=== PATIENT | female | born 1990 | race Asian ===

== ENCOUNTER 2023-03-15 04:09 | Emergency (ER) | payer MEDICAID ==
[~2023-03-15] VITALS: Ht 162.5 cm; Wt 65.7 kg
[2023-03-15 04:14] VITALS: BP 157/97
--- NOTE | 2023-03-15 04:30 | ED GU-Female ---
General Chief Complaint: OB > 20 WEEKS Stated Complaint: ABDOMINAL PAIN Source: patient, family History of Present Illness Date Seen by Provider: March 15, 2023 Time Seen by Provider: 04:13 Initial Comments 32-year-old female that is at approximately 34-4/7 weeks estimated gestational age with a due date of April 22 presenting due to pain waking her up from sleep approximately an hour ago. She is having pains to the top of her uterus and into her back for the last hour she denies having any vaginal bleeding or gush of fluid. She as well as she has been having some swelling in her ankles and feet since Monday. Has not had any lower uterine pain. She still feels baby moving. She denies any pain or burning with urination. The pain seems to be coming in waves at least every 5 or 10 minutes. Timing/Duration: this morning Severity/Quality: moderate Location: other (Upper abdomen of the uterus) Radiation: back Activities at Onset: sleep Prior Genitourinary Problems: none Sexual [place] History: less than 2 months ago Associated Symptoms: No diaphoresis, No dysuria, No fever/chills, No loss of bladder control; lower back pain; No lumps, No mass, No nausea/vomiting, No nocturia, No polyuria; swelling (Bilateral feet and ankle); No syncope, No urinary frequency Allergies and Home Medications Allergies Coded Allergies: No Known Drug Allergies (Unverified , 03/15/23) Patient Home Medication List Home Medication List Reviewed: Yes Review of Systems Review of Systems Constitutional: No chills, No fever EENTM: no symptoms reported Respiratory: no symptoms reported Cardiovascular: no symptoms reported Gastrointestinal: see HPI Genitourinary: see HPI : Yes Expected Date of Delivery: Apr 22, 2023 Musculoskeletal: no symptoms reported Past Qoabond-Czaxhq-Zzugth Hx Patient Social History Tobacco Use?: No Substance use?: No Alcohol Use?: No Pt feels they are or have been: No Physical Exam Vital Signs Vital Signs - First Documented 03/15/23 04:14 Temp 37.0 Pulse 50 Resp 16 B/P (MAP) 157/97 (117) Pulse Ox 99 O2 Delivery Room Air Capillary Refill : Height, Weight, BMI Height: '" Weight: lbs. oz. kg; BMI Method: General Appearance: WD/WN, no apparent distress HEENT: PERRL/EOMI Cardiovascular: normal peripheral pulses, regular rate, rhythm Respiratory: chest non-tender, lungs clear, normal breath sounds Gastrointestinal: normal bowel sounds, soft, no pulsatile mass, other (Gravid uterus) Neurologic/Psychiatric: alert, oriented x 3 Skin: normal color, warm/dry Progress/Results/Core Measures Suspected Sepsis SIRS Temperature: Pulse: Respiratory Rate: Blood Pressure / Mean: Results/Orders Vital Signs/I&O 03/15/23 04:14 Temp 37.0 Pulse 50 Resp 16 B/P (MAP) 157/97 (117) Pulse Ox 99 O2 Delivery Room Air Capillary Refill : Progress Note : Progress Note Obtain heart tones and they were 1 48-1 55. She had some tightening of the uterus on exam that was coming and going. Unable to fully rule out labor just with the equipment available here in the emergency department in [place]. Will call Dr. Alan and notify her and see if she wanted anything else done here prior to having the patient go to labor and delivery. 0425 d/w Dr. Alan and she requested the patient go to L&D for labor evaluation and rule out. I informed the patient and family and they will take her to [place]. Departure Impression Primary Impression: Abdominal pain during in third trimester Additional Impression: Bilateral swelling of feet and ankles Disposition: 01 HOME, SELF-CARE Condition: Stable Departure-Patient Inst. Decision time for Depature: 04:28 Referrals: CHELSIE ALAN MD (PCP) Primary Care Physician Patient Instructions: Stomach Pain Later in Add. Discharge Instructions: Go directly to Labor and Delivery in [facility]. They will be able to evaluate you more for the abdominal pain and swelling and check to see if you are having contractions or not. All discharge instructions reviewed with patient and/or family. Voiced understanding. JONATHAN PERRY MD March 15, 2023 04:30
== END 2023-03-15 04:32 | disposition home or self-care (01) ==
LOC: ER FS 04:13
DX: O99.613 Diseases of the digestive system complicating pregnancy, third trimester (principal); O99.891 Other specified diseases and conditions complicating pregnancy; R10.10 Upper abdominal pain, unspecified; M79.89 Other specified soft tissue disorders; Z28.310 Unvaccinated for COVID-19; Z3A.34 34 weeks gestation of pregnancy

== ENCOUNTER → 2023-03-15 | Outpatient (CLI) | payer MEDICAID ==
[2023-03-15 12:29] LABS: BASOPHILS % (AUTO) 1 % (0-10); EOSINOPHILS # (AUTO) 0.1 10^3/uL (0.0-0.3); EOSINOPHILS % (AUTO) 1 % (0-10); HEMATOCRIT 37 % (35-52); HEMOGLOBIN 12.3 g/dL (11.5-16.0); LYMPHOCYTES # (AUTO) 1.6 10^3/uL (1.0-4.0); LYMPHOCYTES % (AUTO) 20 % (12-44); MEAN CORPUSCULAR HEMOGLOBIN 28 pg (25-34); MEAN CORPUSCULAR HGB CONC 33 g/dL (32-36); MEAN CORPUSCULAR VOLUME 85 fL (80-99); MEAN PLATELET VOLUME 11.6 fL (9.0-12.2); MONOCYTES # (AUTO) 0.5 10^3/uL (0.0-1.0); MONOCYTES % (AUTO) 6 % (0-12); NEUTROPHILS # (AUTO) 5.6 10^3/uL (1.8-7.8); NEUTROPHILS % (AUTO) 72 % (42-75); PLATELET COUNT 236 10^3/uL (130-400); WHITE BLOOD COUNT 7.8 10^3/uL (4.3-11.0)
[2023-03-15 12:42] LABS: ALANINE AMINOTRANSFERASE 25 U/L (0-55); ALBUMIN 3.7 GM/DL (3.2-4.5); ALKALINE PHOSPHATASE 162 U/L (40-136); BILIRUBIN,TOTAL < 0.2 MG/DL (0.1-1.0); BUN/CREATININE RATIO 15; CALCIUM 9.5 MG/DL (8.5-10.1); CARBON DIOXIDE 24 MMOL/L (21-32); CHLORIDE 103 MMOL/L (98-107); CREATININE SERUM 0.61 MG/DL (0.60-1.30); GFR ESTIMATED 123; GLUCOSE 75 MG/DL (70-105); POTASSIUM 4.3 MMOL/L (3.6-5.0); SODIUM 138 MMOL/L (135-145); TOTAL PROTEIN 6.7 GM/DL (6.4-8.2)
[2023-03-15 14:21] LABS: URIC ACID 5.7 MG/DL (2.6-7.2)
== END ==
LOC: LAB FS 11:56
PROVIDERS: ATTEND Nurse Practitioner Family
DX: O16.3 Unspecified maternal hypertension, third trimester (principal); Z3A.00 Weeks of gestation of pregnancy not specified
CPT/HCPCS: 36415; 80053; 82570; 83615; 84156; 84550; 85025

== ENCOUNTER 2023-03-22 14:15 | Inpatient (IN) | payer MEDICAID ==
[2023-03-22] VITALS (36 sets, daily range): BP systolic 115–169; BP diastolic 59–106
[2023-03-22] MEDS ORDERED: MINERAL OIL 30 ML UDC TOP PRN (16:15)
[2023-03-22] MEDS ORDERED: LIDOCAINE/EPI 2% 1:200,00 (XYLOCAINE) 10 ML VIAL INJ PRN (16:15)
[2023-03-22 16:28] LABS: BASOPHILS % (AUTO) 1 % (0-10); EOSINOPHILS # (AUTO) 0.1 10^3/uL (0.0-0.3); EOSINOPHILS % (AUTO) 2 % (0-10); HEMATOCRIT 39 % (35-52); HEMOGLOBIN 12.9 g/dL (11.5-16.0); LYMPHOCYTES # (AUTO) 1.6 X 10^3 (1.0-4.0); LYMPHOCYTES % (AUTO) 24 % (12-44); MEAN CORPUSCULAR HEMOGLOBIN 28 pg (25-34); MEAN CORPUSCULAR HGB CONC 33 g/dL (32-36); MEAN CORPUSCULAR VOLUME 85 fL (80-99); MEAN PLATELET VOLUME 11.4 fL (9.0-12.2); MONOCYTES # (AUTO) 0.5 X 10^3 (0.0-1.0); MONOCYTES % (AUTO) 7 % (0-12); NEUTROPHILS # (AUTO) 4.5 X 10^3 (1.8-7.8); NEUTROPHILS % (AUTO) 66 % (42-75); PLATELET COUNT 293 10^3/uL (130-400); WHITE BLOOD COUNT 6.8 10^3/uL (4.3-11.0)
[2023-03-22 16:31] LABS: ALBUMIN 3.5 GM/DL (3.2-4.5); POTASSIUM 4.3 MMOL/L (3.6-5.0)
[2023-03-22 16:33] LABS: CALCIUM 9.8 MG/DL (8.5-10.1)
[2023-03-22 16:36] LABS: BILIRUBIN,TOTAL 0.1 MG/DL (0.1-1.0)
[2023-03-22 16:37] LABS: CREATININE SERUM 0.67 MG/DL (0.60-1.30)
--- NOTE | 2023-03-22 17:32 | History & Physical-OB ---
OB - Chief Complaint & HPI Date/Time Date of Admission: Date of Admission: March 22, 2023 at 14:15 Date seen by a Provider: March 22, 2023 Time Seen by a Provider: 17:28 Chief Complaint/History OB-Reason for Admission/Chief: Induction of Labor ( Demise) Hx : 1 Gestational Age in Weeks: 35 Gestational Age in Days: 2 History of Labs O+, Ab neg, Rub Imm HIV/RPR/HepB/C NR Allergies and Home Medications Allergies Coded Allergies: No Known Drug Allergies (Unverified , 03/15/23) Patient Home Medication List Home Medication List Reviewed: Yes OB - History Hx of Present Care: Yes Ultrasounds: Other (Demise @ 35 weeks) Obstetrical Complications: Pre-eclampsia Medical Complications: None Patient Past Medical History None Social History/Family History Alcohol Use: Denies Use Recreational Drug Use: No Smoking Cessation: Never smoker Immunizations Tetanus Booster (TDap): Less than 5yrs Rubella: immune RPR/VDRL: Negative GBS Status: Unknown HBsAG: Negative OB - Admission Exam Physical Exam Vitals: Vital Signs 03/22/23 16:30 Temp 36.5 Pulse 89 Resp 18 B/P (MAP) 166/97 (120) Pulse Ox 99 O2 Delivery Room Air HEENT: NCAT Heart: Rhythm Normal Lungs: Clear Abdomen: Gravid Membranes: Intact Contractions on Admission: >10 Minutes Apart Intensity: Mild Labs Laboratory Tests Test 03/22/23 14:50 03/22/23 15:33 Range/Units White Blood Count 6.8 4.3-11.0 10^3/uL Red Blood Count 4.59 3.80-5.11 10^6/uL Hemoglobin 12.9 11.5-16.0 g/dL Hematocrit 39 35-52 % Mean Corpuscular Volume 85 80-99 fL Mean Corpuscular Hemoglobin 28 25-34 pg Mean Corpuscular Hemoglobin Concent 33 32-36 g/dL Red Cell Distribution Width 13.1 10.0-14.5 % Platelet Count 293 130-400 10^3/uL Mean Platelet Volume 11.4 9.0-12.2 fL Immature Granulocyte % (Auto) 0 % Neutrophils (%) (Auto) 66 42-75 % Lymphocytes (%) (Auto) 24 12-44 % Monocytes (%) (Auto) 7 0-12 % Eosinophils (%) (Auto) 2 0-10 % Basophils (%) (Auto) 1 0-10 % Neutrophils # (Auto) 4.5 1.8-7.8 X 10^3 Lymphocytes # (Auto) 1.6 1.0-4.0 X 10^3 Monocytes # (Auto) 0.5 0.0-1.0 X 10^3 Eosinophils # (Auto) 0.1 0.0-0.3 10^3/uL Basophils # (Auto) 0.0 0.0-0.1 10^3/uL Immature Granulocyte # (Auto) 0.0 0.0-0.1 10^3/uL Sodium Level 137 135-145 MMOL/L Potassium Level 4.3 3.6-5.0 MMOL/L Chloride Level 106 98-107 MMOL/L Carbon Dioxide Level 20 L 21-32 MMOL/L Anion Gap 11 5-14 MMOL/L Blood Urea Nitrogen 11 7-18 MG/DL Creatinine 0.67 0.60-1.30 MG/DL Estimat Glomerular Filtration Rate 120 BUN/Creatinine Ratio 16 Glucose Level 88 70-105 MG/DL Calcium Level 9.8 8.5-10.1 MG/DL Corrected Calcium 10.2 H 8.5-10.1 MG/DL Total Bilirubin 0.1 0.1-1.0 MG/DL Aspartate Amino Transf (AST/SGOT) 39 H 5-34 U/L Alanine Aminotransferase (ALT/SGPT) 30 0-55 U/L Alkaline Phosphatase 191 H 40-136 U/L Total Protein 7.0 6.4-8.2 GM/DL Albumin 3.5 3.2-4.5 GM/DL Urine Protein 49 H 6-12 MG/DL Urine Creatinine 17 L 30-125 MG/DL Urine Protein/Creatinine Ratio 2.88 OB - Assessment/Plan/Diagnosis Assessment Assessment: IUFD Admission Dx Third Trimester 35 completed weeks IUFD Admission Status: Inpatient Order (span 2 midnights) Reason for Inpatient Admission: Labor and post care Plan Other Plan 32 yo G1 @ 35 week IUFD Plan - Epidural - Cytotec protocol CHELSIE MONTES MD March 22, 2023 17:32
[2023-03-22] MEDS ORDERED: BUPIVACAINE 0.25% 10 ML (SENSORCAINE) VIAL ONE (17:53)
[2023-03-22] MEDS ORDERED: fentaNYL INJ 100 MCG/2 ML AMP ONE (17:53)
[2023-03-22] MEDS ORDERED: fentaNYL 2 mcg/ml BUPIVA 0.125 100 ML ONE (17:53)
[2023-03-22] MEDS: D5 LR IV SOLUTION 1,000 ML IV SCH (18:26)
[2023-03-22] MEDS ORDERED: CATHETER FLUSH 10 ML SYR IV PRN (18:30)
[2023-03-22] MEDS ORDERED: NALOXONE 0.4 MG/ML 1 ML (NARCAN) VIAL IV PRN (18:30)
[2023-03-22] MEDS ORDERED: LACTATED RINGERS 1,000 ML IV ONE (18:30)
[2023-03-22] MEDS: fentaNYL 2 mcg/ml BUPIVA 0.125 100 ML IV SCH (18:35)
[2023-03-22] MEDS ORDERED: LORazepam INJ 2 MG/ML (ATIVAN) VIAL IVP PRN (19:45)
[2023-03-22] MEDS ORDERED: PREN1TAB19 PO (21:03)
[2023-03-22] MEDS ORDERED: FERR-84 PO (21:03)
[2023-03-22] MEDS ORDERED: CATHETER FLUSH 10 ML SYR IV SCH (22:00)
[2023-03-23] VITALS (41 sets, daily range): BP systolic 102–189; BP diastolic 65–113
[2023-03-23] MEDS: D5 LR IV SOLUTION 1,000 ML IV SCH ×2 (01:07→17:46)
[2023-03-23] MEDS: fentaNYL 2 mcg/ml BUPIVA 0.125 100 ML IV SCH (04:19)
[2023-03-23] MEDS ORDERED: FAMOTIDINE 20MG/2ML IV (PEPCID) IV ONE (07:45)
[2023-03-23] MEDS ORDERED: METOCLOPRAMIDE INJ 10 MG/2 ML (REGLAN) IV ONE (07:45)
[2023-03-23] MEDS ORDERED: CITRIC ACID/SOB CIT (BICITRA) 30 ML UDC PO ONE (07:45)
[2023-03-23] MEDS ORDERED: LACTATED RINGERS 1,000 ML IV PRN (07:45)
[2023-03-23] MEDS ORDERED: FAMOTIDINE 20MG/2ML IV (PEPCID) ONE (07:51)
[2023-03-23] MEDS ORDERED: METOCLOPRAMIDE INJ 10 MG/2 ML (REGLAN) ONE (07:51)
[2023-03-23] MEDS ORDERED: CITRIC ACID/SOB CIT (BICITRA) 30 ML UDC ONE (07:51)
[2023-03-23] MEDS ORDERED: NS (IVPB) 50 ML ONE (07:52)
[2023-03-23] MEDS ORDERED: ceFAZolin INJECTION 2,000 MG ONE (07:52)
[2023-03-23] MEDS ORDERED: ceFAZolin INJECTION 2,000 MG in NS (IVPB) 50 ML IV ONE (08:00)
[2023-03-23] MEDS ORDERED: fentaNYL INJ 100 MCG/2 ML AMP ONE ×2 (08:21→09:03)
--- NOTE | 2023-03-23 08:23 | Consultation ---
History of Present Illness History of Present Illness Patient Consulted On(los/time) 03/23/23 08:17 Date Seen by Provider: March 23, 2023 Time Seen by Provider: 08:15 Reason for Visit: demise History of Present Illness [address] Alan presented to office with IUFD at 35 weeks. IOL overnight, patient not tolerating this mentally and wanting to proceed with delivery antionette due to fear of being able to actually push the baby out. Allergies and Home Medications Allergies Coded Allergies: No Known Drug Allergies (Unverified , 03/15/23) Patient Home Medication List Home Medication List Reviewed: Yes Ferrous Sulfate (Iron) 325 Mg (65 Mg Iron) Tablet, 325 MG PO 2 times a week, (Reported) Entered as Reported by: PRABHJOT GOMEZ on 03/22/232102 Last Action: New Order Vit/Iron Fumarate/FA ( Vitamins Tablet) 28 Mg Iron-800 Mcg Tablet, 1 EACH PO DAILY, (Reported) Entered as Reported by: PRABHJOT GOMEZ on 03/22/232102 Last Action: New Order Past Yxnfhiy-Errley-Wmsosg Hx Patient Social History Tobacco Use?: No Substance use?: No Alcohol Use?: No Pt feels they are or have been: No Immunizations Up To Date Tetanus Booster (TDap): Less than 5yrs Past Medical History Surgery/Hospitalization HX: none Hx : 1 Review of Systems-General Constitutional: see HPI EENTM: see HPI Respiratory: see HPI Cardiovascular: see HPI Gastrointestinal: see HPI Genitourinary: see HPI All Other Systems Reviewed Negative Unless Noted: Yes Physical Exam-General Problems Physical Exam Vital Signs Vital Signs - First Documented 03/22/23 03/22/23 14:30 15:00 Temp 36.5 Pulse 106 Resp 20 B/P (MAP) 149/97 (114) Pulse Ox 96 O2 Delivery Room Air Capillary Refill : General Appearance: WD/WN, no apparent distress HEENT: PERRL/EOMI Lymphatic: no adenopathy Assessment/Plan Assessment/Plan Admission Diagnosis/Plan Diagnosis: 35 week IUFD Suspected IUGR of unknown origin P: PLTCS- discussed with patient how preference would always be for vaginal delivery, but patient and family are adamant about proceeding urgently to delivery. Risk of surgery and anesthesia reviewed and patient agreeable to proceed. Admission Status: Inpatient Order (span 2 midnights) DEBBIE GILL 18, 2023 08:23
--- NOTE | 2023-03-23 08:25 | Labor Progress Note ---
Labor Progress Note Labor Progress Note Date Seen by Provider: March 23, 2023 Time Seen by Provider: 07:00 Subjective: Pt denies complaints. Epidural in place. She is not really feeling contractions. Patient and family desires Primary C/s at this time. Objective: /2 Assessment/Plan: Galina Singh is a (32 /Para 1 / ,Gestational Age (wks)35 here for IUFD Epidural in place Pre eclampsia with mild features, blood pressures well controlled ON, P:Cr ratio 2.33 on arrival Desires Primary C/s Dr Higuera consulted Vitals - Labs Vital Signs - I&O Vital Signs Date Time Temp Pulse Resp B/P (MAP) Pulse Ox O2 Delivery O2 Flow Rate FiO2 03/23/23 07:00 71 18 120/69 (86) 98 Room Air 03/23/23 06:45 73 18 138/80 (99) 98 Room Air 03/23/23 06:30 37.2 83 18 129/80 (96) 98 Room Air 03/23/23 06:15 84 18 123/77 (92) 99 Room Air 03/23/23 06:00 93 18 129/79 (96) 99 Room Air 03/23/23 05:45 77 18 119/75 (90) 98 Room Air 03/23/23 05:30 72 18 120/72 (88) 98 Room Air 03/23/23 05:15 93 18 117/77 (90) 98 Room Air 03/23/23 05:00 76 18 110/72 (85) 98 Room Air 03/23/23 04:45 78 18 107/69 (82) 98 Room Air 03/23/23 04:30 71 18 124/73 (90) 98 Room Air 03/23/23 04:15 37.1 95 18 118/68 (85) 98 Room Air 03/23/23 04:00 75 18 125/75 (92) 98 Room Air 03/23/23 03:45 74 18 128/71 (90) 98 Room Air 03/23/23 03:30 88 18 114/73 (87) 98 Room Air 03/23/23 03:15 73 18 133/78 (96) 98 Room Air 03/23/23 03:00 80 18 145/79 (101) 95 Room Air 03/23/23 02:45 97 18 137/88 (104) 99 Room Air 03/23/23 02:30 85 18 114/70 (85) 98 Room Air 03/23/23 02:15 82 18 102/65 (77) 97 Room Air 03/23/23 02:00 68 18 112/70 (84) 96 Room Air 03/23/23 01:45 86 18 110/74 (86) 97 Room Air 03/23/23 01:30 79 18 125/76 (92) 97 Room Air 03/23/23 01:15 73 18 123/73 (90) 97 Room Air 03/23/23 01:00 37.0 86 18 126/74 (91) 97 Room Air 03/23/23 00:45 82 18 136/78 (97) 97 Room Air 03/23/23 00:30 73 18 134/73 (93) 97 Room Air 03/23/23 00:15 73 18 118/83 (95) 97 Room Air 03/23/23 00:00 37.1 73 18 129/78 (95) 97 Room Air 03/22/23 23:45 73 18 131/81 (98) 97 Room Air 03/22/23 23:30 37.1 69 18 135/77 (96) 97 Room Air 03/22/23 23:15 80 18 140/76 (97) 97 Room Air 03/22/23 23:00 70 18 135/88 (104) 96 Room Air 03/22/23 22:45 76 18 137/85 (102) 97 Room Air 03/22/23 22:30 78 18 153/91 (111) 97 Room Air 03/22/23 22:15 72 18 128/72 (90) 98 Room Air 03/22/23 22:00 67 18 158/79 (105) 97 Room Air 03/22/23 21:45 37.0 75 18 157/81 (106) 98 Room Air 03/22/23 21:30 36.9 68 18 137/91 (106) 97 Room Air 03/22/23 21:00 69 18 154/81 (105) 98 Room Air 03/22/23 20:45 36.6 80 18 152/75 (100) 98 Room Air 03/22/23 20:30 76 18 140/65 (90) 98 Room Air 03/22/23 20:15 79 18 155/74 (101) 97 Room Air 03/22/23 20:00 81 18 151/72 (98) 98 Room Air 03/22/23 19:45 104 18 136/90 (105) 97 Room Air 03/22/23 19:30 85 18 128/77 (94) 98 Room Air 03/22/23 19:10 85 18 117/74 (88) 98 Room Air 03/22/23 18:56 96 18 117/70 (86) 97 03/22/23 18:53 81 18 117/74 (88) 98 03/22/23 18:50 68 18 140/75 (96) 03/22/23 18:48 100 18 115/59 (77) 98 03/22/23 18:43 102 18 123/61 (81) 97 Room Air 03/22/23 18:42 92 18 129/71 (90) 97 Room Air 03/22/23 18:38 78 18 133/70 (91) 97 Room Air 03/22/23 18:35 105 122/62 (82) Room Air 03/22/23 18:35 36.7 03/22/23 18:30 96 129/66 (87) 98 Room Air 03/22/23 18:26 96 18 132/73 (92) 99 Room Air 03/22/23 18:24 96 18 169/106 (127) 99 Room Air 03/22/23 18:21 95 18 146/87 (106) 99 Room Air 03/22/23 18:20 90 18 157/86 (109) 99 Room Air 03/22/23 18:17 87 18 156/88 (110) 99 Room Air 03/22/23 17:45 82 18 138/84 (102) Room Air 03/22/23 16:30 36.5 89 18 166/97 (120) 99 Room Air 03/22/23 15:00 78 18 149/97 (114) Room Air 03/22/23 14:30 36.5 106 20 96 Room Air I & O 03/23/23 07:00 Intake Total 1900 ml Balance 1900 ml Labs Laboratory Tests 03/22/23 14:50: White Blood Count 6.8, Red Blood Count 4.59, Hemoglobin 12.9, Hematocrit 39, Mean Corpuscular Volume 85, Mean Corpuscular Hemoglobin 28, Mean Corpuscular Hemoglobin Concent 33, Red Cell Distribution Width 13.1, Platelet Count 293, Mean Platelet Volume 11.4, Immature Granulocyte % (Auto) 0, Neutrophils (%) (Auto) 66, Lymphocytes (%) (Auto) 24, Monocytes (%) (Auto) 7, Eosinophils (%) (Auto) 2, Basophils (%) (Auto) 1, Neutrophils # (Auto) 4.5, Lymphocytes # (Auto) 1.6, Monocytes # (Auto) 0.5, Eosinophils # (Auto) 0.1, Basophils # (Auto) 0.0, Immature Granulocyte # (Auto) 0.0, Sodium Level 137, Potassium Level 4.3, Chloride Level 106, Carbon Dioxide Level 20L, Anion Gap 11, Blood Urea Nitrogen 11, Creatinine 0.67, Estimat Glomerular Filtration Rate 120, BUN/Creatinine Ratio 16, Glucose Level 88, Calcium Level 9.8, Corrected Calcium 10.2H, Total Bilirubin 0.1, Aspartate Amino Transf (AST/SGOT) 39H, Alanine Aminotransferase (ALT/SGPT) 30, Alkaline Phosphatase 191H, Total Protein 7.0, Albumin 3.5 03/22/23 15:33: Urine Protein 49H, Urine Creatinine 17L, Urine Protein/Creatinine Ratio 2.88 CHELSIE MONTES MD March 23, 2023 08:25
[2023-03-23] MEDS ORDERED: MEASLES,MUMPS,RUBELLA 1 EA INJ SC SCH (08:30)
[2023-03-23] MEDS ORDERED: ONDANSETRON 4 MG/2 ML (SDV) Z0FRAN IVP PRN (08:30)
[2023-03-23] MEDS ORDERED: NALOXONE 0.4 MG/ML 1 ML (NARCAN) VIAL IV PRN (08:30)
[2023-03-23] MEDS ORDERED: TETANUS,DIPTH,PERTUSS P/F (BOOSTRIX) 0.5 ML VIAL IM SCH (08:30)
--- NOTE | 2023-03-23 08:33 | Discharge Inst-Women's Service ---
Discharge Inst-Women's Serv Depart Medication/Instructions New, Converted or Re-Newed RX: Transmitted to Pharmacy Final Diagnosis POD 2 PLTCS Problems Reviewed?: Yes Consults/Follow Up Additional Follow Up: Yes Orders/Referrals Dr. Higuera in 7-10 days and in 6 weeks Activity Activity: Activity as Tolerated Driving Instructions: No Driving for 1 Week NO SMOKING: NO SMOKING Nothing Inside Vagina: No Douching, No [place], No Tampons Diet Discharge Diet: No Restrictions Symptoms to Report to : Bleeding Excessive, Pain Increased, Fever Over 101 Degrees F, Vaginal Bleeding Increase, Questions/Concerns For Any Problems or Questions: Contact Your Physician Skin/Wound Care Infection Signs and Symptoms: Increased Redness, Foul Odor of Wound, Increased Drainage, Skin Itchy or Has a Rash, Increased Swelling, Temperature Above 101 F Operative Area Clean and Dry: Keep Incision Clean/Dry Stitches/[place]/Dermabond: Dermabond, Care of Stitches Bathing Instructions: DEBBIE Lua DO March 23, 2023 08:33
[2023-03-23] MEDS ORDERED: DOCU100C37 PO (08:35)
[2023-03-23] MEDS ORDERED: ACHD5005 PO (08:35)
[2023-03-23] MEDS ORDERED: IBUP-844 PO (08:35)
[2023-03-23] MEDS: DOCUSATE SODIUM 100 MG (COLACE) CAP PO SCH ×2 (09:00→22:02)
[2023-03-23] MEDS ORDERED: KETOROLAC 30 MG/ML VIAL ONE (09:03)
[2023-03-23] MEDS ORDERED: OXYTOCIN PRE-MIX DRIP 500 ML IV ONE ×2 (09:03→09:33)
[2023-03-23] MEDS ORDERED: LIDOCAINE PF 2% 5 ML (XYLOCAINE) VIAL ONE (09:33)
[2023-03-23] MEDS ORDERED: BUPIVACAINE 0.5% 30 ML (SENSORCAINE) VIAL ONE (09:33)
[2023-03-23] MEDS: OXYTOCIN PRE-MIX DRIP 500 ML IV SCH ×2 (10:49→14:51)
--- NOTE | 2023-03-23 11:30 | OPERATIVE REPORT ---
PREOPERATIVE DIAGNOSES: 1. A 32-year-old G1 at 35 weeks' gestation. 2. demise. 3. Small for gestational age. POSTOPERATIVE DIAGNOSES: 1. A 32-year-old G1 at 35 weeks' gestation. 2. demise. 3. Small for gestational age. PROCEDURE: Primary low transverse section. SURGEON: Jerry Gill DO ANESTHESIA: Epidural, which was bolused. ESTIMATED BLOOD LOSS: 300 mL. URINE OUTPUT: 225 mL clear at the end of the procedure. FLUIDS: 1200 mL lactated Ringer's solution. FINDINGS: A demised female with weight pending. Meconium fluid noted on amniotomy. Grossly normal appearing uterus, bilateral fallopian tubes and ovaries with a subserosal fibroid at the uterine fundus. SPECIMEN SENT: Placenta and cord. INDICATIONS FOR PROCEDURE: This 32-year-old patient is a female who was from Dr. Alan's office by Dr. Alan for admission and induction of labor due to demise at 35 weeks and 5 days yesterday evening. She received Cytotec overnight. The patient became quite adamant and suggestive of proceeding with . She did progress to 4 cm; however, did not want to proceed with pushing this demised out vaginally. Her family was agreeable and wanted this to proceed via surgical delivery method. Risk of surgery versus vaginal demise delivery was all reviewed with the patient. Despite risks, she still wished to proceed with delivery and after all of her questions were answered with the family present consent was obtained, the patient was taken to the operating room. OPERATIVE REPORT IN DETAIL: Once in the operating room, epidural analgesia was bolused and found to be adequate. She was placed in supine position with leftward tilt, prepped and draped in normal sterile fashion. A timeout was performed. Anesthesia was tested and then make a Pfannenstiel skin incision with a knife and carried underlying fascia using Bovie cautery. The fascial incision extended laterally using Bovie cautery. Superior aspect of fascial incision was then grasped with Katrina clamps, tented up and dissected off the underlying rectus muscles. The inferior aspect of the fascial incision was then grasped with Katrina clamps, tented up and dissected overlying rectus muscles. The rectus muscles were dissected down the midline, which exposed the peritoneum, which I entered bluntly and extended using blunt traction. Ryder ring retractor was placed in the peritoneal incision, which offers excellent lateral sidewall retraction. I identified lower uterine segment was found to be thinned out and make a low transverse incision to the vesicouterine peritoneum and bluntly dissected off the lower uterine segment, creating a bladder flap. I then proceeded with my myotomy until membranes were visualized, at which point I extended the uterine incision laterally and superiorly using bandage scissors. Amniotomy was then performed using Allis clamp. Thick meconium-stained fluid was noted. The was found in vertex presentation. With gentle fundal pressure, the infant's head was elevated up the incision where it was delivered through the incision and the anterior and posterior shoulders were delivered. The was brought to the operative field where the cord was duly clamped and cut and infant was handed off to Dr. Alan who was present. Intact placenta with 3-vessel cord was then delivered spontaneously thereafter. IV Pitocin is initiated to facilitate uterine contraction. Uterine fundus confirmed by manual massage. The uterus was then exteriorized and cleared of all endometrial clots and debris. I then proceeded with closing the uterine incision using 0 Vicryl suture in a running locked fashion. Second layer of imbricating 0 Monocryl was placed. Excellent hemostasis was noted after doing this. I then placed the uterus back in the pelvis and copiously irrigated the pelvis using normal saline. Once again, there is no active bleeding noted from any of my dissection planes. I placed Interceed antiadhesive over my low transverse incision. I removed the Ryder ring retractor and then proceeded with closing the peritoneum using 3-0 Vicryl suture in a running fashion. The rectus muscles were reapproximated using 3-0 Vicryl suture in interrupted fashion. The fascia was reapproximated using 0 Vicryl suture in a running fashion. The skin reapproximated using 4-0 Monocryl in a running subcuticular. Dermabond was applied to incision, sterile dressing with adhesive white tape. The patient tolerated the procedure well and was taken to recovery area in stable condition. Lap and sponge counts were correct at the end of the procedure. Instrument counts were correct as well. Two grams of Ancef were given preoperatively for infection prophylaxis. Job ID: [id number] DocumentID: [id number] Dictated Date: 03/23/2023 09:29:02 [employer] Date: 03/23/2023 11:28:00 Dictated By: JERRY GILL DO
[2023-03-23] MEDS ORDERED: CATHETER FLUSH 10 ML SYR IV SCH (14:00)
[2023-03-23] MEDS: KETOROLAC 30 MG/ML VIAL IV SCH ×2 (16:19→22:02)
[2023-03-23] MEDS: HYDROcodone/APAP 5 MG/325 MG (LORTAB) TAB PO PRN ×2 (17:06→23:28)
[2023-03-23] MEDS ORDERED: ALPRAZolam 0.25 MG (XANAX) TAB PO PRN (17:15)
[2023-03-23] MEDS ORDERED: hydrALAZINE (APESOLINE) 20 MG/ML VIAL IV ONE (17:15)
[2023-03-23] MEDS ORDERED: hydrALAZINE (APESOLINE) 20 MG/ML VIAL ONE (17:32)
[2023-03-24 03:30] VITALS: BP 147/86
[2023-03-24] MEDS: KETOROLAC 30 MG/ML VIAL IV SCH (04:52)
[2023-03-24 05:33] LABS: BASOPHILS # (AUTO) 0.1 10^3/uL (0.0-0.1); BASOPHILS % (AUTO) 1 % (0-10); EOSINOPHILS # (AUTO) 0.2 10^3/uL (0.0-0.3); EOSINOPHILS % (AUTO) 2 % (0-10); HEMATOCRIT 31 % (35-52); HEMOGLOBIN 10.2 g/dL (11.5-16.0); LYMPHOCYTES # (AUTO) 1.3 10^3/uL (1.0-4.0); LYMPHOCYTES % (AUTO) 19 % (12-44); MEAN CORPUSCULAR HEMOGLOBIN 28 pg (25-34); MEAN CORPUSCULAR HGB CONC 33 g/dL (32-36); MEAN CORPUSCULAR VOLUME 85 fL (80-99); MONOCYTES # (AUTO) 0.4 10^3/uL (0.0-1.0); MONOCYTES % (AUTO) 5 % (0-12); NEUTROPHILS # (AUTO) 5.2 10^3/uL (1.8-7.8); NEUTROPHILS % (AUTO) 73 % (42-75); PLATELET COUNT 187 10^3/uL (130-400); WHITE BLOOD COUNT 7.2 10^3/uL (4.3-11.0)
[2023-03-24] MEDS ORDERED: LABE200T10 PO ×2 (08:31→08:49)
--- NOTE | 2023-03-24 08:33 | Postpartum Progress Note ---
Note Note Day # 1 Subjective: Patient is without complaints. Ambulating, voiding. Tolerating a regular diet without nausea or vomiting. Normal lochia. Pain is well controlled with oral pain medications. She has elevations in BP with anxiety and worry overnight. Otherwise while resting BP well controlled. Objective: Physical Exam: General - Alert and oriented, no apparent distress Abdomen - Soft, appropriately tender to palpation, non-distended, fundus firm at umbilicus Extremities - no edema, negative Yolanda's bilaterally Incision- c/d/i Assessment: POD 1 PLTCS Intrauterine Demise depression/anxiety- patient declines medication Acute blood loss anemia Labile BP Plan: Routine care. Started on labetalol 200 mg BID Encourage breast feeding. Encourage ambulation. Ferrous sulfate supplementation. Plan for discharge tomorrow Vitals - Labs Vital Signs - I&O Vital Signs Date Time Temp Pulse Resp B/P (MAP) Pulse Ox O2 Delivery O2 Flow Rate FiO2 03/24/23 03:30 36.6 77 18 147/86 (106) 97 Room Air 03/23/23 22:05 37.0 80 18 143/99 (114) 98 03/23/23 17:50 36.3 91 18 137/91 (106) 97 Room Air 03/23/23 17:10 70 189/95 (126) 03/23/23 16:35 36.2 72 18 183/105 (131) 97 Room Air 03/23/23 13:00 36.4 90 18 158/103 (121) 97 Room Air 03/23/23 10:34 Room Air 03/23/23 10:34 36.3 18 153/113 (126) 97 Room Air 03/23/23 10:19 Room Air 03/23/23 10:19 36.1 14 153/100 (117) 97 Room Air 03/23/23 10:04 Room Air 03/23/23 10:04 36.3 18 149/110 (123) 96 Room Air 03/23/23 09:49 Room Air 03/23/23 09:49 36.4 14 137/90 (106) 97 Room Air 03/23/23 09:34 Room Air 03/23/23 09:34 36.2 16 148/89 (108) 97 Room Air I & O 03/24/23 07:00 Intake Total 350 ml Output Total 3025 ml Balance -2675 ml Labs Laboratory Tests 03/24/23 04:57: White Blood Count 7.2, Red Blood Count 3.65L, Hemoglobin 10.2L, Hematocrit 31L, Mean Corpuscular Volume 85, Mean Corpuscular Hemoglobin 28, Mean Corpuscular Hemoglobin Concent 33, Red Cell Distribution Width 13.2, Platelet Count 187, Mean Platelet Volume 11.0, Immature Granulocyte % (Auto) 0, Neutrophils (%) (Auto) 73, Lymphocytes (%) (Auto) 19, Monocytes (%) (Auto) 5, Eosinophils (%) (Auto) 2, Basophils (%) (Auto) 1, Neutrophils # (Auto) 5.2, Lymphocytes # (Auto) 1.3, Monocytes # (Auto) 0.4, Eosinophils # (Auto) 0.2, Basophils # (Auto) 0.1, Immature Granulocyte # (Auto) 0.0 DEBBIE GILL DO March 24, 2023 08:33
[2023-03-24] MEDS ORDERED: IBUP-844 PO (08:49)
[2023-03-24] MEDS ORDERED: ACHD5005 PO (08:49)
[2023-03-24] MEDS ORDERED: DOCU100C37 PO (08:49)
[2023-03-24] MEDS: DOCUSATE SODIUM 100 MG (COLACE) CAP PO SCH ×2 (09:36→21:38)
[2023-03-24] MEDS: LABETALOL 200 MG (NORMODYNE) TAB PO SCH ×2 (09:36→21:38)
[2023-03-24 09:37] VITALS: BP 141/87
[2023-03-24] MEDS: HYDROcodone/APAP 5 MG/325 MG (LORTAB) TAB PO PRN ×2 (09:50→19:42)
[2023-03-24] MEDS: IBUPROFEN 600 MG (MOTRIN) TAB PO SCH ×3 (11:24→23:26)
[2023-03-24 17:17] VITALS: BP 141/76
[2023-03-24 19:42] VITALS: BP 149/91
[2023-03-25 01:30] VITALS: BP 135/85
[2023-03-25] MEDS: IBUPROFEN 600 MG (MOTRIN) TAB PO SCH (05:26)
[2023-03-25 08:30] VITALS: BP 140/87
[2023-03-25] MEDS ORDERED: ALPR.25T PO (08:40)
[2023-03-25] MEDS: DOCUSATE SODIUM 100 MG (COLACE) CAP PO SCH (08:43)
[2023-03-25] MEDS: LABETALOL 200 MG (NORMODYNE) TAB PO SCH (08:43)
--- NOTE | 2023-03-25 08:51 | Postpartum Progress Note ---
Post Op Post-operative Day #2, Stillbirth @ 35+ weeks, preeclampsia on Labetalol Subjective: Patient is without complaints. Ambulating, voiding after richardson removed. Tolerating a regular diet without nausea or vomiting. Normal lochia. Pain is well controlled with oral pain medications. Passing flatus. Patient requesting a few tablets for anxiety, on Xanax in house 0.25 mg q8h prn, took one yesterday. Discussed with patient and spouse avoiding taking both Xanax and oral narcotics at same time, take motrin and APAP instead, due to risks of sedation with both Xanax and narcotics at same time. Patient has bouts of anxiety when alone, will take rarely prn. Rx for 8 tablets in EHR as outpatient entered. Patient given verbal post-op instructions by me, encouraged ambulation especially over the next three weeks. Also has written instructions. Will follow up in [address] Higuera's office. BPs in normal range this AM. No additional questions or concerns about medical condition at this time. Objective: VSS/AF Physical Exam: General - Alert and oriented, no apparent distress Abdomen - Soft, appropriately tender to palpation, non-distended, fundus firm at umbilicus Incision - clean, dry and intact; no erythema or induration, no drainage Extremities - no edema, negative Yolanda's bilaterally Assessment: [] post-operative day # 2, status post Primary after failed induction for stillbirth @ 35+ weeks. Recovering well, hemodynamically stable Plan: Routine post-operative care. Encourage ambulation. Plan for discharge today. Follow up with Dr. Higuera's office next week. Advised to call clinic, L&D if any questions. Knows to go to ED for incional redness/pain/temp/foul drainage. No additional questions or concerns voiced by couple at this time. All questions answered to their satisfaction, voiced clear understanding in [place]. Vitals - Labs Vital Signs - I&O Vital Signs Date Time Temp Pulse Resp B/P (MAP) Pulse Ox O2 Delivery O2 Flow Rate FiO2 03/25/23 01:30 37.0 96 16 135/85 (102) 98 Room Air 03/24/23 19:42 36.5 96 18 149/91 (110) Room Air 03/24/23 17:17 36.8 96 18 141/76 (97) Room Air 03/24/23 09:37 36.9 105 18 141/87 (105) 97 Room Air CONCHITA GIPSON DO March 25, 2023 08:51
[2023-03-25] MEDS ORDERED: IBUPROFEN 600 MG (MOTRIN) TAB PO SCH (11:00)
[2023-03-25 12:00] VITALS: BP 151/95
== END 2023-03-25 14:15 | disposition home or self-care (01) | DRG 787 ==
LOC: LDRP 14:15
PROVIDERS: ADMIT Family Medicine; ATTEND Family Medicine
PROC: 10D00Z1 Extraction of Products of Conception, Low, Open Approach (ICD-10-PCS; principal; 2023-03-23 08:36)
DX: O36.4XX0 Maternal care for intrauterine death, not applicable or unspecified (principal); D62 Acute posthemorrhagic anemia; Z3A.35 35 weeks gestation of pregnancy; O14.94 Unspecified pre-eclampsia, complicating childbirth; Z37.1 Single stillbirth; O90.81 Anemia of the puerperium; O99.345 Other mental disorders complicating the puerperium; F53.0 Postpartum depression; F41.9 Anxiety disorder, unspecified
CPT/HCPCS: 36415; 80053; 82570; 84156; 85025; 86850; 86900; 86901